=== PATIENT | female | born 2000 | race Caucasian/White ===

== ENCOUNTER 2022-02-28 09:37 | Emergency (ER) | payer BC ==
[~2022-02-28] VITALS: Ht 162.6 cm; Wt 44.5 kg
[2022-02-28 09:46] VITALS: BP_SYST 119
--- NOTE | 2022-02-28 10:19 | NUR ---
ER DR. MARCELINO EXAMINING PT IN TRIAGE
--- NOTE | 2022-02-28 11:02 | NUR ---
PT TO LAB FOR BLOOD DRAW
[2022-02-28 11:27] LABS: BASOPHILS % (AUTO) 0.3 % (0.0-2.0); EOSINOPHILS # (AUTO) 0.1 K/uL (0.0-0.4); EOSINOPHILS % (AUTO) 1.2 % (0.0-4.0); HEMATOCRIT 42.5 % (36-48); HEMOGLOBIN 14.3 g/dL (12.0-16.0); LYMPHOCYTES # (AUTO) 2.1 K/uL (1.0-5.5); LYMPHOCYTES % (AUTO) 23.8 % (20.5-51.5); MEAN CORPUSCULAR HEMOGLOBIN 31 pg (27-31); MEAN CORPUSCULAR HGB CONC 34 % (32-36); MEAN CORPUSCULAR VOLUME 91 fL (79.0-98.0); MONOCYTES # (AUTO) 0.6 K/uL (0.0-1.0); MONOCYTES % (AUTO) 6.9 % (1.7-9.3); NEUTROPHILS # (AUTO) 5.9 K/uL (1.8-7.7); NEUTROPHILS % (AUTO) 67.8 % (40.0-70.0); PLATELET COUNT (AUTO) 209 K/uL (130-430); RED BLOOD CELL COUNT(AUTO) 4.69 MIL/uL (4.2-6.2); RED CELL DISTRIBUTION WIDTH 13.3 % (9.0-15.0); WHITE BLOOD COUNT (AUTO) 8.7 K/uL (4.8-10.8)
--- NOTE | 2022-02-28 11:29 | NUR ---
Patient to ER bed 4 to gown for evaluation. Side rails up. Report given to VANESA URIARTE.
[2022-02-28 11:37] LABS: ANION GAP 6 (5-15); CALCIUM 8.1 mg/dL (8.4-11.0); CHLORIDE 103 mmol/L (98-107); CREATININE 0.81 mg/dL (0.55-1.30); GLUCOSE 77 mg/dL (70-99); POTASSIUM 4.1 mmol/L (3.5-5.1); SODIUM SERUM 138 mmol/L (136-145); UREA NITROGEN, BLOOD 11 mg/dL (8-21)
--- NOTE | 2022-02-28 11:40 | NUR ---
MD MARCELINO AT BEDSIDE FOR ASSESS. AWAITING ADDITIONAL ORDERS. LABS AND URINES IN PROCESS.
[2022-02-28 11:43] LABS: ALANINE AMINOTRANSFERASE 26 U/L (12-78); ALBUMIN 3.9 g/dL (3.4-4.8); AMYLASE 61 U/L (0-100); ASPARTATE AMINOTRANSFERASE 19 U/L (10-37); LIPASE 57 U/L (73-393); TOTAL BILIRUBIN 0.2 mg/dL (0.0-1.0)
[2022-02-28 11:55] LABS: C-REACTIVE PROTEIN QUANT < 0.2 mg/dL (0-0.5); GFR AFRICAN AMERICAN 113 mL/min (>90)
[2022-02-28 12:11] LABS: BILIRUBIN,URINE NEGATIVE (NEGATIVE); BLOOD, URINE 2+ (NEGATIVE); CLARITY/URINE TURBID (CLEAR); COLOR,URINE YELLOW (YELLOW); GLUCOSE,URINE NEGATIVE (NEGATIVE); KETONES,URINE NEGATIVE (NEGATIVE); LEUKOCYTE ESTERASE ,URINE 2+ (NEGATIVE); NITRITE, URINE NEGATIVE (NEGATIVE); PH,URINE 7.5 (5.0-8.0); PROTEIN URINE 1+ (NEGATIVE); UROBILINOGEN,URINE 0.2 (0.2-1.0)
[2022-02-28] MEDS ORDERED: NITR-85 PO (12:30)
[2022-02-28] MEDS ORDERED: IBUP-1969 PO (12:30)
--- NOTE | 2022-02-28 12:33 | NUR ---
PT DISCHARGED GIVEN ACI. ALL QUESTIONS ANSWERED. VERIFIED TWO PRESCRIPTIONS. VSS. NAD NOTED. WRIST BAND REMOVED. PT AMBULATED TO EXIT WITH MOTHER. END OF CARE.
[2022-02-28 12:36] VITALS: BP_SYST 118
[2022-02-28 12:51] LABS: BACTERIA,URINE MANY /HPF (None Seen); MUCUS,URINE 1+ /LPF (None Seen); RBC,URINE 20-50 /HPF (0-3); WBC,URINE 50-80 /HPF (0-3)
== END 2022-02-28 12:36 | disposition home or self-care (01) ==
LOC: SED 09:37
DX: R10.30 Lower abdominal pain, unspecified (principal); Z88.8 Allergy status to other drugs, medicaments and biological substances
CPT/HCPCS: 36415; 76376; 80053; 81000; 81025; 82150; 83690; 84703; 85025; 86140; 87086; 99284